=== PATIENT | female | born 1955 | race Two or more races ===

== ENCOUNTER 2019-08-20 06:55 | Day surgery (SDC) | payer OTHER ==
[~2019-08-20 06:55] MED LIST: B COMPLEX WITH1 EAC1 PO; LODOSYN25 MG PO; SIMVASTAT PO; SYNTHROID75 MCG PO
[2019-08-20] MEDS ORDERED: PERCOCET 5-3251 EACH PO (14:16)
== END 2019-08-20 16:40 | disposition home or self-care (01) ==
LOC: CIR.AMB 06:55 → ADM 13:15 → CIR.AMB 16:40
PROVIDERS: ATTEND Surgery
DX: E21.0 Primary hyperparathyroidism (principal)